=== PATIENT | female | born 1965 ===

== ENCOUNTER 2017-06-04 18:34 | Emergency (ER) | payer SELFPAY ==
[2017-06-04 18:42] VITALS: BP 168/80
[2017-06-04] MEDS ORDERED: Lidocaine 1% with EPINEPHrine 1:100,000 20 ML MDV INJECT ONE (19:03)
--- NOTE | 2017-06-04 19:27 | EDM.PDOC ---
ED HPI GENERAL MEDICAL PROBLEM - General Chief Complaint: Genitourinary Problem Stated Complaint: VAGINAL IRRITATION Time Seen by Provider: 06/04/17 18:58 Source of Information: Reports: Patient History Limitations: Reports: No Limitations - History of Present Illness INITIAL COMMENTS - FREE TEXT/NARRATIVE: The patient presents with a painful growth to her labia. She has noticed this over the past few days. She has severe pain with walking and sitting at times. She has been riding a stationary bicycle for exercise. She denies any fever or chills. She has only HTN as her medical problems. Onset: Gradual Duration: Day(s): Location: Reports: Other (left labia) Quality: Reports: Sharp Severity: Severe Improves with: Reports: Immobilization Worsens with: Reports: Movement (walking and sitting) Associated Symptoms: Reports: No Other Symptoms Vaginal Pain Score (Numeric/FACES): 10 - Related Data Allergies Allergy/AdvReac Type Severity Reaction Status Date / Time No Known Allergies Allergy Verified 06/04/17 18:42 Home Meds: Home Meds Cephalexin [Keflex] 500 mg PO Q6HR #40 cap 06/04/17 [Rx] Past Medical History Cardiovascular History: Reports: Hypertension Social & Family History - Tobacco Use Smoking Status *Q: Never Smoker - Recreational Drug Use Recreational Drug Use: No ED ROS GENERAL - Review of Systems Review Of Systems: See Below Constitutional: Reports: No Symptoms HEENT: Reports: No Symptoms Respiratory: Reports: No Symptoms Cardiovascular: Reports: No Symptoms Endocrine: Reports: No Symptoms GI/Abdominal: Reports: No Symptoms : Reports: Other (Lump to left labia) Musculoskeletal: Reports: No Symptoms Skin: Reports: No Symptoms ED EXAM, RENAL/ - Physical Exam Exam: See Below Exam Limited By: No Limitations General Appearance: Alert, No Apparent Distress Ears: Normal External Exam Nose: Normal Inspection Head: Atraumatic, Normocephalic Neck: Normal Inspection Respiratory/Chest: No Respiratory Distress, Lungs Clear, Normal Breath Sounds Cardiovascular: Regular Rate, Rhythm, No Edema, No Murmur GI/Abdominal: Soft, Non-Tender, No Organomegaly, No Mass (Female) Exam: Other (Large bartholeen's abscess to the left labia majorum) ED I&D PROCEDURES - I&D Site: Left labia Skin prep: Chlorhexidine (Hibiciens) Local anesthesia - Lidocaine (Xylocaine): 1% with EPI Local Anesthetic Volume: 2cc Area Incised With: 11 Blade Drainage: Purulent, Bloody, Large Amount Probed to Break Up Loculations: Yes Packed With: 1/4 in. Iodoform Complications: No Course - Vital Signs Last Recorded V/S: Last Vital Signs Temp 97.1 F 06/04/17 18:40 Pulse 91 06/04/17 18:40 Resp 16 06/04/17 18:40 BP 168/80 H 06/04/17 18:40 Pulse Ox 100 06/04/17 18:40 - Orders/Labs/Meds Meds: Medications Discontinued Medications Generic Name Dose Route Start Last Admin Trade Name Freq PRN Reason Stop Dose Admin Lidocaine/Epinephrine 20 ml 06/04/17 19:03 Xylocaine 1% With Epinephrine 1:100,000 INJECT 06/04/17 19:04 ONETIME ONE - Re-Assessments/Exams Free Text/Narrative Re-Assessment/Exam: 06/04/17 19:48 I did an I & D of a bartholeen's abscess to the left labia. I have obtained cultures. I will put her on some keflex and have her follow up with Dr Doyle. Departure - Departure Time of Disposition: 19:50 Disposition: Home, Self-Care 01 Condition: Good Clinical Impression: Bartholin's gland abscess - Discharge Information Prescriptions: Cephalexin [Keflex] 500 mg PO Q6HR #40 cap Referrals: PCP,None [Primary Care Provider] - Doug Doyle MD [Physician] - 3 Days Forms: ED Department Discharge Additional Instructions: Do a sits bath 2 times per day where you take warm soapy water in the bottom of a tub and sit in it for 10 minutes. Try to leave the packing in for 3 to 5 days. Take the keflex 4 times per day. Follow up with Dr Doyle in 3 to 4 days. Please return if you are worse.
== END 2017-06-04 20:07 | disposition home or self-care (01) ==
LOC: JD.ED 18:34
DX: N75.1 Abscess of Bartholin's gland (principal); I10 Essential (primary) hypertension
CPT/HCPCS: 56405; 87075; 87076; 87077; 87181; 87186; 87205; 99283-25

== ENCOUNTER 2018-01-01 08:21 | Day surgery (SDC) | payer BC ==
[~2018-01-01 08:21] MED LIST: Lidocaine 1%/Sod Bicarbonate in NS 8.4% 1 ML Syringe IDERM PRN; Sodium Chloride 0.9% 10 ML Syringe FLUSH PRN
[2018-01-01] MEDS: Lactated Ringers 1,000 ML IV SCH ×2 (08:40→10:46)
--- NOTE | 2018-01-01 08:45 | PCM.PREANE ---
Preanesthetic Assessment - Anesthesia/Transfusion/Family Hx Anesthesia History: Prior Anesthesia Without Reaction Family History of Anesthesia Reaction: No Transfusion History: No Prior Transfusion(s) - Review of Systems General: No Symptoms Pulmonary: No Symptoms Cardiovascular: No Symptoms Gastrointestinal: No Symptoms Neurological: No Symptoms Other: Reports: None - Physical Assessment NPO Status Date: 12/31/17 NPO Status Time: 22:00 Pulse: 76 O2 Sat by Pulse Oximetry: 99 Respiratory Rate: 16 Blood Pressure: 186/88 Temperature: 99.4 F Height: 5 ft Weight: 55.338 kg ASA Class: 2 Mental Status: Alert & Oriented x3 Airway Class: Mallampati = 1 Dentition: Reports: Normal Dentition Thyro-Mental Finger Breadths: 3 ROM/Head Extension: Full Lungs: Clear to Auscultation, Normal Respiratory Effort Cardiovascular: Regular Rate, Regular Rhythm - Allergies Allergies/Adverse Reactions: Allergies Allergy/AdvReac Type Severity Reaction Status Date / Time No Known Allergies Allergy Verified 06/04/17 18:42 - Blood Blood Available: No - Acknowledgements Anesthesia Type Planned: General Anesthesia Pt an Appropriate Candidate for the Planned Anesthesia: Yes Alternatives and Risks of Anesthesia Discussed w Pt/Guardian: Yes Pt/Guardian Understands and Agrees with Anesthesia Plan: Yes PreAnesthesia Questionnaire Cardiovascular History: Reports: Hypertension Respiratory History: Reports: None Gastrointestinal History: Reports: None - Past Surgical History Female Surgical History: Reports: Section, Hysterectomy - History Comment History Comment: on metildopa 250 bid but doesn't take often/ taken this am with sip - SUBSTANCE USE Smoking Status *Q: Never Smoker Tobacco Use Within Last Twelve Months: No Second Hand Smoke Exposure: No Days Per Week of Alcohol Use: 0 Recreational Drug Use History: No - HOME MEDS Home Medications: Home Meds Cephalexin [Keflex] 500 mg PO Q6HR #40 cap 06/04/17 [Rx] - CURRENT (IN HOUSE) MEDS Current Meds: Current Medications Lactated Ringer's (Ringers, Lactated) 1,000 mls @ 125 mls/hr IV ASDIRECTED ABIGAIL Lidocaine/Sodium Bicarbonate (Buffered Lidocaine 1% In Ns 8.4%) 0.25 ml IDERM ONETIME PRN PRN Reason: Prior to IV Start Sodium Chloride (Saline Flush) 10 ml FLUSH ASDIRECTED PRN PRN Reason: Keep Vein Open
[2018-01-01] MEDS ORDERED: ceFAZolin 1 GM Vial ONE (09:24)
[2018-01-01] MEDS ORDERED: Rocuronium 50 MG/5 ML Vial ONE (09:24)
[2018-01-01] MEDS ORDERED: Midazolam 1 MG/ML 2 ML SDV ONE (09:24)
[2018-01-01] MEDS ORDERED: fentaNYL 250 MCG/5 ML SDV ONE (09:24)
[2018-01-01] MEDS ORDERED: Propofol 200 MG/20 ML SDV ONE (09:24)
[2018-01-01] MEDS ORDERED: Lidocaine 1% 4 ML ONE (09:24)
[2018-01-01] MEDS ORDERED: Ondansetron 4 MG/2 ML SDV ONE (09:24)
[2018-01-01] MEDS ORDERED: Dexamethasone 4 MG/ML 5 ML MDV ONE (09:36)
[2018-01-01] MEDS ORDERED: Bacitracin Oint 15 GM Tube ONE (10:00)
[2018-01-01] MEDS ORDERED: Lidocaine 1% with EPINEPHrine 1:100,000 20 ML MDV ONE (10:00)
[2018-01-01] MEDS ORDERED: Sodium Chloride 0.9% 50 ML SDV ONE (10:01)
[2018-01-01] MEDS ORDERED: Meperidine PF 50 MG/ML Syringe IVPUSH PRN (10:03)
[2018-01-01] MEDS ORDERED: fentaNYL 100 MCG/2 ML SDV IVPUSH PRN (10:03)
[2018-01-01] MEDS ORDERED: HYDROmorphone 0.5 MG/0.5 ML Syringe IVPUSH PRN (10:03)
[2018-01-01] MEDS ORDERED: Ondansetron 4 MG/2 ML SDV IVPUSH PRN (10:03)
--- NOTE | 2018-01-01 10:22 | PCM.POSTAN ---
POST ANESTHESIA ASSESSMENT - MENTAL STATUS Mental Status: Alert, Oriented - VITAL SIGNS Pulse Rate: 78 SaO2: 99 Resp Rate: 12 Blood Pressure: 121/73 Temperature: 99.3 F - RESPIRATORY Respiratory Status: Respiratory Rate WNL, Airway Patent, O2 Saturation Stable, Supplemental Oxygen - CARDIOVASCULAR CV Status: Pulse Rate WNL, Blood Pressure Stable - GASTROINTESTINAL GI Status: No Symptoms - PAIN Pain Score: 0 - POST OP HYDRATION Hydration Status: Adequate & Stable
--- NOTE | 2018-01-01 10:38 | PCM.OPNOTE ---
- General Post-Op/Procedure Note Date of Surgery/Procedure: 01/01/18 Operative Procedure(s): Marsupialization of left Bartholin's gland cyst with biopsy of cyst wall Findings: Enlarged Bartholin's gland abscess with minimal drainage from pinpoint opening near the 12 o'clock position of the Bartholin's gland. Bartholin's gland measured approximately 4 x 3 x 2 cm. Approximately 15 mL of bloody purulent fluid was expressed from the abscess. Otherwise normal-appearing right labia majora and minora. Pre Op Diagnosis: Left sided recurrent Bartholin's gland abscess Post-Op Diagnosis: Same Anesthesia Technique: General LMA Primary Surgeon: Carson Cordon Anesthesia Provider: João Zuleta Auction Block Clerk: Doug Doyle Reason Auction Block Clerk Was Necessary: Retraction and patient safety Role of Auction Block Clerk: Retraction Pathology: Left Bartholin's gland cyst wall Fluid Replacement, Intraop: 1,000 Output, Urine Amount: 0 (Voided prior to procedure) EBL in mLs: 5 Complications: None Condition: Good Free Text/Narrative:: Procedure in detail: The patient was seen in the preoperative holding area and the risks, benefits and alternatives of the procedure were again discussed with the patient. She desired to proceed with the procedure and consents were reviewed. Prior to going back to the operating room her pressure was noted be somewhat elevated and she had not taken her methyldopa prior to arriving to the hospital. She took her dose of methyldopa prior to going back and her blood pressure was 160s over 80s prior to going back to the operating room. She was taken back to the operating room and given general anesthesia using a laryngeal mask airway. She was prepped and draped in a normal sterile fashion. Inspection of the perineum showed a left sided Bartholin's gland abscess measuring approximately 4 x 3 x 2 cm. There was a small area of drainage from the 12:00 point of the superior Bartholin's gland. The squamous mucosal junction was identified and this was injected with 0.25% lidocaine with epinephrine. A stab incision was made using a scalpel with expression of a large amount of bloody purulent fluid. A hemostat was used to break up any loculations that were present. The cyst was irrigated using sterile saline solution. The edges of the cyst wall were then grasped on the vaginal mucosa side of the incision and a larger portion of the skin was removed in an elliptical fashion including a portion of the cyst wall. The cyst wall was sent for pathology. The cyst wall was then sutured to the vaginal mucosa and vaginal skin using 3-0 Monocryl in interrupted fashion. The edges of the incision were hemostatic at the end of procedure. Procedure was completed at this time. Bacitracin ointment was placed over the incision edges. The patient was awoken and the laryngeal mask airway was removed. She was taken back to the recovery area in good condition. She will be discharged once she is able to ambulate, tolerate a small amount of liquid in solid food, voiding without difficulty and her pain is able to be controlled with oral medications. She will follow up in 2 weeks or earlier as needed. Recommend for patient to follow up with primary care provider for management of her hypertension.
[2018-01-01] MEDS ORDERED: Acetaminophen/oxyCODONE 325-5 MG Tab PO ONE (10:58)
--- NOTE | 2018-01-01 12:55 | PCM48HPAN ---
Post Anesthesia Note - EVALUATION WITHIN 48HRS OF ANESTHETIC Vital Signs in Normal Range: Yes Patient Participated in Evaluation: No (Patient discharged) Respiratory Function Stable: Yes Airway Patent: Yes Cardiovascular Function Stable: Yes Hydration Status Stable: Yes Pain Control Satisfactory: Yes (3) Nausea and Vomiting Control Satisfactory: Yes Mental Status Recovered: Yes Pulse Rate: 61 SaO2: 97 Resp Rate: 16 Temperature: 99.3 F Blood Pressure: 142/80
[2018-01-01 12:58] VITALS: BP 141/84
== END 2018-01-01 12:25 | disposition home or self-care (01) ==
LOC: JD.SDS 08:21
PROVIDERS: ATTEND Obstetrics & Gynecology
DX: N75.1 Abscess of Bartholin's gland (principal); N75.0 Cyst of Bartholin's gland; I10 Essential (primary) hypertension
CPT/HCPCS: 56440; 87070; 93005; A9270; J0690; J1100; J2001; J2250; J2405; J3010; J7120; 00940; 87077; 87186; J2704